=== PATIENT | male | born 1960 | race American Indian/Alaskan Native ===

== ENCOUNTER 2018-12-30 10:14 | Inpatient (IN) | payer MEDICAID ==
[2018-12-30] MEDS ORDERED: ASPIRIN PO ONE (10:39)
[2018-12-30] MEDS ORDERED: ASPIRIN ONE (10:42)
[2018-12-30] MEDS ORDERED: NORMODYNE IV ONE (11:23)
--- NOTE | 2018-12-30 11:26 | XRay Report ---
CHEST 2 VIEWS INDICATION: Chest Pain. COMPARISON: 12/08/2014 FINDINGS: Support devices: None. Heart: Within normal limits. Lungs: No acute air space or interstitial disease. Bronchovascular markings are prominent Pleura: No significant pleural effusion. No pneumothorax. Additional findings: None. IMPRESSION: 1. Diffuse prominent bronchovascular markings, pulmonary edema is a concern Signer Name: Dre Grissom MD Signed: 12/30/2018 11:21 AM Workstation Name: [id number]
--- NOTE | 2018-12-30 11:29 | Emergency Department Report ---
ED Chest Pain HPI - General Chief Complaint: Chest Pain Stated Complaint: R ARM/CHEST PAIN Time Seen by Provider: 12/30/18 11:22 Source: patient Mode of arrival: Ambulatory Limitations: No Limitations - History of Present Illness Initial Comments: Mr. Marti is a 58-year-old male with history of hypertension and diabetes mellitus who presents with chest pain for the past 3 days. Left-sided chest pain feels as if his heart is fluttering". Developed left arm pain today. Gradual onset of chest pain. Pain is persistent at rest. No change with move ment, inspiration or exertion. Pain is moderately severe. 8 out of 10 in severity. Nonspecific quality. No history of cardiac disease in the family. Positive tobacco use. He does not take any medications at this time. MD Complaint: chest pain -: Gradual, days(s) (3) Onset: during rest Pain Location: left chest Pain Radiation: LUE Severity: severe Severity scale (0 -10): 8 Quality: other (nonspecific fluttering) Consistency: constant Improves With: nothing Worsens With: nothing Treatments Prior to Arrival: none - Related Data Home Medications Medication Instructions Recorded Confirmed Last Taken Lisinopril [Zestril TAB] 2.5 mg PO QDAY 12/08/14 12/14/14 Unknown Previous Rx's Medication Instructions Recorded Last Taken Type UMER CITRATE 630mg/VIT D3 500 u 1 each PO DAILY #30 tablet 12/12/14 Unknown Rx [Calcitrate + Vit D (Nf)] Nicotine [Habitrol] 21 mg TD QDAY #30 patch 12/12/14 12/14/14 Rx Ciprofloxacin HCl [Ciprofloxacin 500 mg PO BID #10 tablet 12/17/14 Unknown Rx TAB] Insulin NPH/Regular [NovoLIN 70/30] 20 unit SUB-Q QPMDIAB 30 Days 12/17/14 Unknown Rx units Insulin NPH/Regular [NovoLIN 70/30] 30 unit SUB-Q QDDIAB 30 Days units 12/17/14 Unknown Rx Omeprazole Magnesium [PriLOSEC Otc] 20 mg PO QDAY #30 tablet. 12/17/14 Unknown Rx metroNIDAZOLE [Flagyl TAB] 500 mg PO Q8HR #15 tablet 12/17/14 Unknown Rx Allergies Allergy/AdvReac Type Severity Reaction Status Date / Time No Known Allergies Allergy Verified 12/30/18 10:52 Heart Score - HEART Score History: Moderately suspicious EKG: Non-specific Age: 45-65 Risk factors: > 3 risk factors or hx of atherosclerotic disease Troponin: < normal limit HEART Score: 5 ED Review of Systems ROS: Stated complaint: R ARM/CHEST PAIN Other details as noted in HPI Comment: All other systems reviewed and negative Constitutional: denies: fever, malaise Respiratory: orthopnea Cardiovascular: chest pain, palpitations ED Past Medical Hx - Past Medical History Previous Medical History?: Yes Hx Hypertension: Yes Hx Congestive Heart Failure: No Hx Diabetes: Yes Hx Asthma: No Hx COPD: No Hx HIV: No - Surgical History Additional Surgical History: Right elbow - Family History Family history: hypertension - Social History Smoking Status: Current Every Day Smoker Substance Use Type: Alcohol - Medications Home Medications: Home Medications Medication Instructions Recorded Confirmed Last Taken Type Lisinopril [Zestril TAB] 2.5 mg PO QDAY 12/08/14 12/14/14 Unknown History UMER CITRATE 630mg/VIT D3 500 u 1 each PO DAILY #30 tablet 12/12/14 12/14/14 Unkn own Rx [Calcitrate + Vit D (Nf)] Nicotine [Habitrol] 21 mg TD QDAY #30 patch 12/12/14 12/14/14 12/14/14 Rx Ciprofloxacin HCl [Ciprofloxacin 500 mg PO BID #10 tablet 12/17/14 Unknown Rx TAB] Insulin NPH/Regular [NovoLIN 70/30] 20 unit SUB-Q QPMDIAB 30 Days 12/17/14 Unknown Rx units Insulin NPH/Regular [NovoLIN 70/30] 30 unit SUB-Q QDDIAB 30 Days units 12/17/14 Unknown Rx Omeprazole Magnesium [PriLOSEC Otc] 20 mg PO QDAY #30 tablet. 12/17/14 Unknown Rx metroNIDAZOLE [Flagyl TAB] 500 mg PO Q8HR #15 tablet 12/17/14 Unknown Rx ED Physical Exam - General Limitations: No Limitations General appearance: alert, in no apparent distress - Head Head exam: Present: atraumatic, normocephalic - Eye Eye exam: Present: conjunctival injection. Absent: scleral icterus - ENT ENT exam: Present: mucous membranes moist - Neck Neck exam: Present: normal inspection, full ROM - Respiratory Respiratory exam: Present: normal lung sounds bilaterally. Absent: respiratory distress, wheezes, rales, rhonchi - Cardiovascular Cardiovascular Exam: Present: regular rate, normal rhythm, normal heart sounds. Absent: systolic murmur, diastolic murmur, rubs, gallop - GI/Abdominal GI/Abdominal exam: Present: soft, normal bowel sounds. Absent: distended, tenderness, guarding, rebound - Rectal Rectal exam: Present: deferred - Extremities Exam Extremities exam: Present: normal inspection - Back Exam Back exam: Present: normal inspection - Neurological Exam Neurological exam: Present: alert, oriented X3 - Psychiatric Psychiatric exam: Present: normal affect, normal mood - Skin Skin exam: Present: warm, dry, intact, normal color. Absent: rash ED Course Vital Signs 12/30/18 12/30/18 12/30/18 10:37 11:40 11:41 Temperature 98 F Pulse Rate 83 85 85 Respiratory 18 Rate Blood Pressure 187/109 192/105 192/105 Blood Pressure [Right] O2 Sat by Pulse 99 Oximetry 12/30/18 12/30/18 11:52 12:27 Temperature Pulse Rate 85 65 Respiratory 18 18 Rate Blood Pressure Blood Pressure 148/88 [Right] O2 Sat by Pulse 97 98 Oximetry ED Medical Decision Making - Lab Data Result diagrams: 12/30/18 11:14 12/30/18 11:14 - EKG Data 12/30/18 11:29 EKG obtained 1018 Normal sinus rhythm rate 90 bpm normal axis normal intervals. LVH with repolarization and a mildly poor R-wave progression in the anterior leads I have compared this EKG to EKG obtained 12/08/2014, T-wave pattern has changed in the inferolateral leads - Radiology Data Radiology results: report reviewed Pcxr; probable interstitial vascular possible pulmonary edema - Medical Decision Making Mr. Marti presents with hypertensive emergency, active chest pain with EKG changes when compared to previous EKG. Admitted to hospitalist service for ACS. Treated in ED with nitroglycerin, ASA, beta zuleima. will add BNP for possible early pulmonary edema according to chest radiograph interpretation by radiologist Critical care attestation.: If time is entered above; I have spent that time in minutes in the direct care of this critically ill patient, excluding procedure time. ED Disposition Clinical Impression: Acute coronary syndrome, Hypertensive emergency Disposition: OP ADMIT IP TO THIS HOSP Is pt being admited?: Yes Does the pt Need Aspirin: No Condition: Stable
[2018-12-30] MEDS: NITROSTAT SL PRN ×3 (11:41→17:30)
[2018-12-30 12:06] LABS: BUN/Creatinine Ratio 8; Blood Urea Nitrogen 7 mg/dL (9-20); Calcium 9.3 mg/dL (8.4-10.2); Hemolysis Index 60
[2018-12-30 12:18] LABS: Basophils # (Auto) 0.1 K/mm3 (0.0-0.1); Basophils % (Auto) 0.8 % (0.0-1.8); Eosinophils # (Auto) 0.2 K/mm3 (0.0-0.4); Eosinophils % (Auto) 2.4 % (0.0-4.3); Hematocrit 45.4 % (35.5-45.6); Hemoglobin 15.2 gm/dl (11.8-15.2); Lymphocytes # (Auto) 3.6 K/mm3 (1.2-5.4); Lymphocytes % (Auto) 38.4 % (13.4-35.0); Mean Corpuscular HGB Conc 33 % (32-34); Mean Corpuscular Volume 89 fl (84-94); Monocytes # (Auto) 0.7 K/mm3 (0.0-0.8); Monocytes % (Auto) 7.8 % (0.0-7.3); Platelet Count 169 K/mm3 (140-440); Red Blood Count 5.08 M/mm3 (3.65-5.03); Red Cell Distribution Width 13.6 % (13.2-15.2)
[2018-12-30] MEDS: DILAUDID IV PRN ×2 (17:01→20:11)
[2018-12-30] MEDS ORDERED: SODIUM CHLORIDE FLUSH SYRINGE 10 ML IV PRN ×2 (18:23→20:50)
[2018-12-30] MEDS ORDERED: ZOFRAN IV PRN ×2 (18:23→20:50)
[2018-12-30] MEDS ORDERED: [UNRECOGNIZED DRUG - OTHER] PO SCH (20:30)
[2018-12-30] MEDS ORDERED: CHOLECALCIFEROL PO SCH (20:30)
[2018-12-30] MEDS ORDERED: CALCIUM CITRATE PO SCH (20:30)
--- NOTE | 2018-12-30 20:40 | History and Physical Report ---
History of Present Illness Date of examination: 12/30/18 Date of admission: 12/30/18 14:27 Chief complaint: Chest pain for 3 days History of present illness: 58-year-old -Japanese male with history of insulin-dependent diabetes nicotine dependence and gastroesophageal of his disease comes in for left-sided chest pain for 3 days. Chest pain associated with palpitations. No diaphoresis. Also chest pain with radiation to the left arm. Exacerbated by a exertion. Chest pain is intermittent. 8 on a scale of 1-10. No recent travel. No fever or chills. Patient smokes over a pack a day. Did not see a physician in the last 2 years. Buys his INSULIN from [employer] and gives himself 30 units in the morning and 20 units in the evening. No A1c was checked in the recent 2 years. Past Medical History Previous Medical History?: Yes Hypertension: Yes Diabetes: Yes Surgical History Additional Surgical History: Right elbow Family History Family history: hypertension Social History Smoking Status: Current Every Day Smoker--- pack a day Substance Use Type: Alcohol Medications Home Medications: Home Medications Medication Instructions Recorded Confirmed Last Taken Type Lisinopril [Zestril TAB] 2.5 mg PO QDAY 12/08/14 12/14/14 Unknown History MAGDALENO CITRATE 630mg/VIT D3 500 u 1 each PO DAILY #30 tablet 12/12/14 12/14/14 Unknown Rx [Calcitrate + Vit D (Nf)] Nicotine [Habitrol] 21 mg TD QDAY #30 patch 12/12/14 12/14/14 12/14/14 Rx Ciprofloxacin HCl [Ciprofloxacin 500 mg PO BID #10 tablet 12/17/14 Unknown Rx TAB] Insulin NPH/Regular [NovoLIN 70/30] 20 unit SUB-Q QPMDIAB 30 Days 12/17/14 Unknown Rx units Insulin NPH/Regular [NovoLIN 70/30] 30 unit SUB-Q QDDIAB 30 Days units 12/17/14 Unknown Rx Omeprazole Magnesium [PriLOSEC Otc] 20 mg PO QDAY #30 tablet. 12/17/14 Unknown Rx metroNIDAZOLE [Flagyl TAB] 500 mg PO Q8HR #15 tablet 12/17/14 Unknown Rx Review of Systems ROS: Stated complaint: R ARM/CHEST PAIN Other details as noted in HPI Comment: All other systems reviewed and negative Constitutional: denies: fever, malaise Respiratory: orthopnea Cardiovascular: chest pain, palpitations Medications and Allergies Allergies Allergy/AdvReac Type Severity Reaction Status Date / Time No Known Allergies Allergy Verified 12/30/18 10:52 Home Medications Medication Instructions Recorded Confirmed Last Taken Type Lisinopril [Zestril TAB] 2.5 mg PO QDAY 12/08/14 12/14/14 Unknown History MAGDALENO CITRATE 630mg/VIT D3 500 u 1 each PO DAILY #30 tablet 12/12/14 12/14/14 Unknown Rx [Calcitrate + Vit D (Nf)] Nicotine [Habitrol] 21 mg TD QDAY #30 patch 12/12/14 12/14/14 12/14/14 Rx Ciprofloxacin HCl [Ciprofloxacin 500 mg PO BID #10 tablet 12/17/14 Unknown Rx TAB] Insulin NPH/Regular [NovoLIN 70/30] 20 unit SUB-Q QPMDIAB 30 Days 12/17/14 Unknown Rx units Insulin NPH/Regular [NovoLIN 70/30] 30 unit SUB-Q QDDIAB 30 Days units 12/17/14 Unknown Rx Omeprazole Magnesium [PriLOSEC Otc] 20 mg PO QDAY #30 tablet. 12/17/14 Unknown Rx metroNIDAZOLE [Flagyl TAB] 500 mg PO Q8HR #15 tablet 12/17/14 Unknown Rx Active Meds: Active Medications Acetaminophen (Tylenol) 650 mg PO Q4H PRN PRN Reason: Pain MILD(1-3)/Fever >100.5/VILLEGAS Hydralazine HCl (Apresoline) 10 mg IV Q4HR PRN PRN Reason: Blood Pressure Hydromorphone HCl (Dilaudid) 0.5 mg IV Q3H PRN PRN Reason: Pain , Severe (7-10) Last Admin: 12/30/18 20:11 Dose: 0.5 mg Documented by: Insulin Human Isoph/Insulin Regular (Humulin 70/30) 20 unit SUB-Q QPMDIAB MADY Insulin Human Isoph/Insulin Regular (Humulin 70/30) 30 unit SUB-Q QDDIAB MADY Miscellaneous Medication (Magdaleno Citrate 630mg/Vit D3 500 U [Calcitrate + Vit D (Nf)]) 1 each PO DAILY MADY Miscellaneous Medication (Lisinopril [Zestril Tab]) 2.5 mg PO QDAY MADY Miscellaneous Medication (Omeprazole Magnesium [Prilosec Otc]) 20 mg PO QDAY MADY Nicotine (Habitrol) 21 mg TD QDAY MADY Nitroglycerin (Nitrostat) 0.4 mg SL .Q5MIN PRN PRN Reason: Chest Pain Last Admin: 12/30/18 17:30 Dose: 0.4 mg Documented by: Ondansetron HCl (Zofran) 4 mg IV Q8H PRN PRN Reason: Nausea And Vomiting Oxycodone/Acetaminophen (Percocet 5/325) 1 tab PO Q6H PRN PRN Reason: Pain, Moderate (4-6) Sodium Chloride (Sodium Chloride Flush Syringe 10 Ml) 10 ml IV BID MADY Sodium Chloride (Sodium Chloride Flush Syringe 10 Ml) 10 ml IV PRN PRN PRN Reason: LINE FLUSH Exam - Constitutional Vitals: Temp Pulse Resp BP Pulse Ox 97.7 F 71 18 188/88 98 12/30/18 16:59 12/30/18 17:52 12/30/18 20:11 12/30/18 17:24 12/30/18 17:55 General appearance: Present: no acute distress, well-nourished - EENT Eyes: Present: PERRL ENT: hearing intact, clear oral mucosa - Neck Neck: Present: supple, normal ROM - Respiratory Respiratory effort: normal Respiratory: bilateral: CTA - Cardiovascular Heart rate: 90 Rhythm: regular Heart Sounds: Present: S1 & S2. Absent: rub, click - Extremities Extremities: no ischemia, pulses intact, pulses symmetrical, No edema Peripheral Pulses: within normal limits - Abdominal General gastrointestinal: Present: soft, non-tender, non-distended, normal bowel sounds Male genitourinary: Present: normal - Rectal Rectal Exam: deferred - Integumentary Integumentary: Present: clear, warm, dry - Musculoskeletal Musculoskeletal: gait normal, strength equal bilaterally - Psychiatric Psychiatric: appropriate mood/affect, intact judgment & insight - Neurologic Neurologic: CNII-XII intact, moves all extremities - Allied Health Allied health notes reviewed: nursing, case management Results - Labs CBC & Chem 7: 12/30/18 11:14 12/30/18 11:14 Labs: Laboratory Last Values WBC 9.3 K/mm3 (4.5-11.0) 12/30/18 11:14 RBC 5.08 M/mm3 (3.65-5.03) H 12/30/18 11:14 Hgb 15.2 gm/dl (11.8-15.2) 12/30/18 11:14 Hct 45.4 % (35.5-45.6) 12/30/18 11:14 MCV 89 fl (84-94) 12/30/18 11:14 MCH 30 pg (28-32) 12/30/18 11:14 MCHC 33 % (32-34) 12/30/18 11:14 RDW 13.6 % (13.2-15.2) 12/30/18 11:14 Plt Count 169 K/mm3 (140-440) 12/30/18 11:14 Lymph % (Auto) 38.4 % (13.4-35.0) H 12/30/18 11:14 Emmons % (Auto) 7.8 % (0.0-7.3) H 12/30/18 11:14 Eos % (Auto) 2.4 % (0.0-4.3) 12/30/18 11:14 Baso % (Auto) 0.8 % (0.0-1.8) 12/30/18 11:14 Lymph # 3.6 K/mm3 (1.2-5.4) 12/30/18 11:14 Emmons # 0.7 K/mm3 (0.0-0.8) 12/30/18 11:14 Eos # 0.2 K/mm3 (0.0-0.4) 12/30/18 11:14 Baso # 0.1 K/mm3 (0.0-0.1) 12/30/18 11:14 Seg Neutrophils % 50.6 % (40.0-70.0) 12/30/18 11:14 Seg Neutrophils # 4.7 K/mm3 (1.8-7.7) 12/30/18 11:14 Sodium 136 mmol/L (137-145) L 12/30/18 11:14 Potassium 4.3 mmol/L (3.6-5.0) 12/30/18 11:14 Chloride 100.6 mmol/L (98-107) 12/30/18 11:14 Carbon Dioxide 24 mmol/L (22-30) 12/30/18 11:14 16 mmol/L 12/30/18 11:14 BUN 7 mg/dL (9-20) L 12/30/18 11:14 0.9 mg/dL (0.8-1.5) 12/30/18 11:14 Estimated GFR > 60 ml/min 12/30/18 11:14 8 % 12/30/18 11:14 Glucose 224 mg/dL (75-100) H 12/30/18 11:14 POC Glucose 204 (70-105) H 12/30/18 17:12 Calcium 9.3 mg/dL (8.4-10.2) 12/30/18 11:14 < 0.010 ng/mL (0.00-0.029) 12/30/18 13:42 NT-Pro-B Natriuret Pep 358.4 pg/mL (0-900) 12/30/18 13:42 Short CBC 12/30/18 Range/Units 11:14 WBC 9.3 (4.5-11.0) K/mm3 Hgb 15.2 (11.8-15.2) gm/dl Hct 45.4 (35.5-45.6) % Plt Count 169 (140-440) K/mm3 [facility] 12/30/18 11:14 Sodium 136 L Potassium 4.3 Chloride 100.6 Carbon Dioxide 24 BUN 7 L Creatinine 0.9 Glucose 224 H Calcium 9.3 Cardiac Enzymes 12/30/18 12/30/18 Range/Units 11:14 13:42 Troponin T < 0.010 < 0.010 (0.00-0.029) ng/mL Short CBC 12/30/18 Range/Units 11:14 WBC 9.3 (4.5-11.0) K/mm3 Hgb 15.2 (11.8-15.2) gm/dl Hct 45.4 (35.5-45.6) % Plt Count 169 (140-440) K/mm3 [facility] 12/30/18 11:14 Sodium 136 L Potassium 4.3 Chloride 100.6 Carbon Dioxide 24 BUN 7 L Creatinine 0.9 Glucose 224 H Calcium 9.3 Cardiac Enzymes 12/30/18 12/30/18 Range/Units 11:14 13:42 Troponin T < 0.010 < 0.010 (0.00-0.029) ng/mL - Imaging and Cardiology EKG: report reviewed (heart rate of 93 per minute, left atrial enlargement and LVH.) Chest x-ray: report reviewed Imaging and Cardiology: Chest x-ray IMPRESSION: 1. Diffuse prominent bronchovascular markings, pulmonary edema is a concern Assessment and Plan Advance Directives: Yes (full code) VTE prophylaxis?: Chemical Plan of care discussed with patient/family: Yes - Patient Problems (1) Acute chest pain Current Visit: Yes Status: Acute Plan to address problem: Chest pain rule out CA protocol Serial troponins Lexiscan on Tuesday (2) Hypertension Current Visit: No Status: Chronic Qualifiers: Hypertension type: essential hypertension Qualified Code(s): I10 - Essential (primary) hypertension Plan to address problem: Continue antihypertensives (3) Insulin dependent diabetes mellitus Current Visit: Yes Status: Chronic Plan to address problem: Continue home insulin and coverage Check hemoglobin A1c (4) Nicotine dependence Current Visit: Yes Status: Chronic Qualifiers: Nicotine product type: cigarettes Plan to address problem: NicoDerm patch initiated Smoking cessation consult 10 minutes (5) DVT prophylaxis Current Visit: Yes Status: Acute Plan to address problem: Lovenox 40 mg subcutaneous daily and GI prophylaxis
[2018-12-30] MEDS ORDERED: NON-FORMULARY (Omeprazole Magnesium [Prilosec Otc] 20 MG) PO SCH (20:45)
[2018-12-30] MEDS ORDERED: REGLAN IV PRN (20:50)
[2018-12-30] MEDS ORDERED: TYLENOL PO PRN (20:50)
[2018-12-30] MEDS: PROTONIX PO SCH (21:37)
[2018-12-30] MEDS: HABITROL TD SCH (21:37)
[2018-12-30] MEDS: LOVENOX SUB-Q SCH (21:37)
[2018-12-30] MEDS: APRESOLINE IV PRN (21:38)
[2018-12-30] MEDS: SODIUM CHLORIDE FLUSH SYRINGE 10 ML IV SCH (21:49)
[2018-12-30] MEDS ORDERED: SODIUM CHLORIDE FLUSH SYRINGE 10 ML IV SCH (22:00)
[2018-12-30] MEDS: HumaLOG SUB-Q SCH (23:12)
[2018-12-31] MEDS: TYLENOL PO PRN (02:59)
[2018-12-31] MEDS: APRESOLINE IV PRN ×2 (03:47→21:43)
[2018-12-31 05:26] LABS: Basophils # (Auto) 0.1 K/mm3 (0.0-0.1); Basophils % (Auto) 1.2 % (0.0-1.8); Eosinophils # (Auto) 0.3 K/mm3 (0.0-0.4); Eosinophils % (Auto) 3.1 % (0.0-4.3); Hematocrit 44.5 % (35.5-45.6); Hemoglobin 14.9 gm/dl (11.8-15.2); Lymphocytes # (Auto) 3.5 K/mm3 (1.2-5.4); Lymphocytes % (Auto) 40.3 % (13.4-35.0); Mean Corpuscular HGB Conc 33 % (32-34); Mean Corpuscular Volume 89 fl (84-94); Monocytes # (Auto) 0.7 K/mm3 (0.0-0.8); Monocytes % (Auto) 8.6 % (0.0-7.3); Platelet Count 176 K/mm3 (140-440); Red Blood Count 4.98 M/mm3 (3.65-5.03); Red Cell Distribution Width 13.8 % (13.2-15.2)
[2018-12-31 05:55] LABS: Alanine Aminotransferase 27 units/L (7-56); Albumin 3.6 g/dL (3.9-5); BUN/Creatinine Ratio 9; Blood Urea Nitrogen 7 mg/dL (9-20); Calcium 8.8 mg/dL (8.4-10.2); Hemolysis Index 21
[2018-12-31] MEDS: HumaLOG SUB-Q SCH ×4 (08:56→21:45)
[2018-12-31] MEDS ORDERED: NON-FORMULARY (Lisinopril [Zestril Tab] 2.5 MG) PO SCH (10:00)
[2018-12-31] MEDS: CITRACAL D 315MG-250 UNITS PO SCH (10:50)
[2018-12-31] MEDS: PERCOCET 5/325 PO PRN ×3 (10:50→23:40)
[2018-12-31] MEDS: ZESTRIL PO SCH (10:51)
[2018-12-31] MEDS: HABITROL TD SCH (10:51)
[2018-12-31] MEDS: PROTONIX PO SCH (10:51)
--- NOTE | 2018-12-31 13:30 | Progress Note ---
Assessment and Plan Assessment and plan: Chest pain. Admitted to [facility] Continue Aspirin 325mg po daily Stress testing in am Hypertension Continue to monitor blood pressure Diabetes mellitus type II Fingerstick glucose qac and hs He is on Humulin 70/30 twice a day Full code status History Interval history: Chest pain Hospitalist Physical - Physical exam Narrative exam: Gen: Not in acute distress, lying in bed, HEENT: Normocephalic, atraumatic Neck: supple, no JVD Heart: S1 and S2 reg, no murmurs, rubs or gallop Lungs: Clear to auscultation, no crackles, no rhonchi Abd: soft, non tender, non distended, normal BS, Ext: No edema, no clubbing, no cyanosis Neuro: Awake,alert, Oriented X 3. No focal neurological signs Psych: normal mood - Constitutional Vitals: Temp Pulse Resp BP Pulse Ox 97.9 F 92 H 20 145/84 98 12/31/18 08:15 12/31/18 09:00 12/31/18 10:50 12/31/18 08:15 12/31/18 11:55 General appearance: Present: no acute distress, well-nourished Results - Labs CBC & Chem 7: 12/31/18 04:37 12/31/18 04:37 Labs: Laboratory Last Values WBC 8.6 K/mm3 (4.5-11.0) 12/31/18 04:37 RBC 4.98 M/mm3 (3.65-5.03) 12/31/18 04:37 Hgb 14.9 gm/dl (11.8-15.2) 12/31/18 04:37 Hct 44.5 % (35.5-45.6) 12/31/18 04:37 MCV 89 fl (84-94) 12/31/18 04:37 MCH 30 pg (28-32) 12/31/18 04:37 MCHC 33 % (32-34) 12/31/18 04:37 RDW 13.8 % (13.2-15.2) 12/31/18 04:37 Plt Count 176 K/mm3 (140-440) 12/31/18 04:37 Lymph % (Auto) 40.3 % (13.4-35.0) H 12/31/18 04:37 Woods % (Auto) 8.6 % (0.0-7.3) H 12/31/18 04:37 Eos % (Auto) 3.1 % (0.0-4.3) 12/31/18 04:37 Baso % (Auto) 1.2 % (0.0-1.8) 12/31/18 04:37 Lymph # 3.5 K/mm3 (1.2-5.4) 12/31/18 04:37 Woods # 0.7 K/mm3 (0.0-0.8) 12/31/18 04:37 Eos # 0.3 K/mm3 (0.0-0.4) 12/31/18 04:37 Baso # 0.1 K/mm3 (0.0-0.1) 12/31/18 04:37 Seg Neutrophils % 46.8 % (40.0-70.0) 12/31/18 04:37 Seg Neutrophils # 4.0 K/mm3 (1.8-7.7) 12/31/18 04:37 Sodium 139 mmol/L (137-145) 12/31/18 04:37 Potassium 3.7 mmol/L (3.6-5.0) 12/31/18 04:37 Chloride 101.6 mmol/L (98-107) 12/31/18 04:37 Carbon Dioxide 23 mmol/L (22-30) 12/31/18 04:37 18 mmol/L 12/31/18 04:37 BUN 7 mg/dL (9-20) L 12/31/18 04:37 0.8 mg/dL (0.8-1.5) 12/31/18 04:37 Estimated GFR > 60 ml/min 12/31/18 04:37 9 % 12/31/18 04:37 Glucose 176 mg/dL (75-100) H 12/31/18 04:37 POC Glucose 151 (70-105) H 12/31/18 12:10 8.2 % (4-6) H 12/30/18 20:13 Calcium 8.8 mg/dL (8.4-10.2) 12/31/18 04:37 0.30 mg/dL (0.1-1.2) 12/31/18 04:37 AST 26 units/L (5-40) 12/31/18 04:37 ALT 27 units/L (7-56) 12/31/18 04:37 127 units/L (35-129) 12/31/18 04:37 < 0.010 ng/mL (0.00-0.029) 12/31/18 00:24 NT-Pro-B Natriuret Pep 358.4 pg/mL (0-900) 12/30/18 13:42 6.8 g/dL (6.3-8.2) 12/31/18 04:37 3.6 g/dL (3.9-5) L 12/31/18 04:37 1.1 % 12/31/18 04:37 Active Medications - Current Medications Current Medications: Generic Name Dose Route Start Last Admin Trade Name Freq PRN Reason Stop Dose Admin Acetaminophen 650 mg 12/30/18 18:23 12/31/18 02:59 Tylenol PO 650 mg Q4H PRN Administration Pain MILD(1-3)/Fever >100.5/VILLEGAS Calcium Citrate 2 each 12/31/18 10:00 12/31/18 10:50 Citracal D 315mg-250 Units PO 2 each DAILY MADY Administration Enoxaparin Sodium 40 mg 12/30/18 22:00 12/30/18 21:37 Lovenox SUB-Q 40 mg QDAY@2200 MADY Administration Hydralazine HCl 10 mg 12/30/18 20:28 12/31/18 03:47 Apresoline IV 10 mg Q4HR PRN Administration Blood Pressure Hydromorphone HCl 0.5 mg 12/30/18 16:43 12/30/18 20:11 Dilaudid IV 0.5 mg Q3H PRN Administration Pain , Severe (7-10) Insulin Human Isoph/Insulin Regular 20 unit 12/31/18 17:00 Humulin 70/30 SUB-Q QPMDIAB MADY Insulin Human Isoph/Insulin Regular 30 unit 12/31/18 08:00 12/31/18 08:54 Humulin 70/30 SUB-Q 30 unit QDDIAB MADY Administration Insulin Human Lispro 0 unit 12/30/18 22:00 12/31/18 08:56 Humalog SUB-Q 2 unit ACHS MADY Administration Protocol Lisinopril 2.5 mg 12/31/18 10:00 12/31/18 10:51 Zestril PO 2.5 mg QDAY MADY Administration Metoclopramide HCl 10 mg 12/30/18 20:50 Reglan IV Q6H PRN Nausea And Vomiting Nicotine 21 mg 12/30/18 21:00 12/31/18 10:51 Habitrol TD 21 mg QDAY MADY Administration Nitroglycerin 0.4 mg 12/30/18 11:22 12/30/18 17:30 Nitrostat SL 0.4 mg .Q5MIN PRN Administration Chest Pain Ondansetron HCl 4 mg 12/30/18 18:23 Zofran IV Q8H PRN Nausea And Vomiting Ondansetron HCl 4 mg 12/30/18 20:50 Zofran IV Q8H PRN Nausea And Vomiting Oxycodone/Acetaminophen 1 tab 12/30/18 18:23 12/31/18 10:50 Percocet 5/325 PO 1 tab Q6H PRN Administration Pain, Moderate (4-6) Pantoprazole Sodium 20 mg 12/30/18 22:00 12/31/18 10:51 Protonix PO 20 mg QDAY MADY Administration Sodium Chloride 10 ml 12/30/18 22:00 12/30/18 21:49 Sodium Chloride Flush Syringe 10 Ml IV 10 ml BID MADY Administration Sodium Chloride 10 ml 12/30/18 18:23 Sodium Chloride Flush Syringe 10 Ml IV PRN PRN LINE FLUSH
[2018-12-31] MEDS: ECOTRIN PO SCH (18:13)
[2018-12-31] MEDS: LOVENOX SUB-Q SCH (21:44)
[2018-12-31] MEDS: SODIUM CHLORIDE FLUSH SYRINGE 10 ML IV SCH (21:45)
[2019-01-01] MEDS: APRESOLINE IV PRN ×2 (06:05→15:27)
[2019-01-01] MEDS ORDERED: LEXISCAN IV ONE (08:07)
[2019-01-01] MEDS: PROTONIX PO SCH (12:59)
[2019-01-01] MEDS: PERCOCET 5/325 PO PRN ×2 (13:03→21:44)
[2019-01-01] MEDS: CITRACAL D 315MG-250 UNITS PO SCH (13:04)
[2019-01-01] MEDS: HABITROL TD SCH (13:04)
[2019-01-01] MEDS: ZESTRIL PO SCH (13:05)
[2019-01-01] MEDS: ECOTRIN PO SCH (13:05)
[2019-01-01] MEDS: HumaLOG SUB-Q SCH ×3 (13:07→21:47)
[2019-01-01] MEDS: SODIUM CHLORIDE FLUSH SYRINGE 10 ML IV SCH ×2 (13:07→21:47)
[2019-01-01] MEDS ORDERED: NORVASC PO SCH (13:30)
--- NOTE | 2019-01-01 15:01 | Discharge Summary ---
Providers - Providers Date of Admission: 12/30/18 14:27 Date of discharge: 01/01/19 Attending physician: LAST PABLO Primary care physician: [facility] MD FEDE Hospitalization Condition: Fair Disposition: DC-01 TO HOME OR SELFCARE Core Measure Documentation - Palliative Care Palliative Care/ Comfort Measures: Not Applicable - Core Measures Any of the following diagnoses?: none Exam - Constitutional Vitals: Temp Pulse Resp BP Pulse Ox 98.4 F 98 H 18 157/95 99 01/01/19 11:56 01/01/19 13:04 01/01/19 11:56 01/01/19 13:04 01/01/19 11:56 Plan Activity: no restrictions Diet: low fat, low cholesterol, low salt Plan of Treatment: 1.Follow up with PCP or Rema Smith in 1 week. Assessment: 1.Chest pain, non-cardiac due to GERD 2.Hypertensive urgency Follow up with: REMA TIRADO MD [Primary Care Provider] - 3-5 Days
[2019-01-01] MEDS ORDERED: APRESOLINE IV ONE (17:35)
[2019-01-01] MEDS: TYLENOL PO PRN (17:47)
--- NOTE | 2019-01-01 18:24 | Progress Note ---
Assessment and Plan Assessment and plan: Chest pain non cardiac, due to GERD Admitted to Tele Continue Aspirin 325mg po daily Stress testing negative Hypertensive urgency BP remains elevated after adding Norvasc, Hydralazine iv Will add hydralazine po Will also add clonidine if BP remains high Diabetes mellitus type II Fingerstick glucose qac and hs He is on Humulin 70/30 twice a day Full code status Poss dc tomorrow if BP controlled. Not dc today because BP still high. History Interval history: Chest pain resolved Blood pressure elevated Hospitalist Physical - Physical exam Narrative exam: Gen: Not in acute distress, lying in bed, HEENT: Normocephalic, atraumatic Neck: supple, no JVD Heart: S1 and S2 reg, no murmurs, rubs or gallop Lungs: Clear to auscultation, no crackles, no rhonchi Abd: soft, non tender, non distended, normal BS, Ext: No edema, no clubbing, no cyanosis Neuro: Awake,alert, Oriented X 3. No focal neurological signs Psych: normal mood - Constitutional Vitals: Temp Pulse Resp BP Pulse Ox 98.4 F 91 H 20 163/91 99 01/01/19 15:22 01/01/19 18:00 01/01/19 15:22 01/01/19 18:00 01/01/19 15:22 General appearance: Present: no acute distress, well-nourished Results - Labs CBC & Chem 7: 12/31/18 04:37 12/31/18 04:37 Labs: Laboratory Last Values WBC 8.6 K/mm3 (4.5-11.0) 12/31/18 04:37 RBC 4.98 M/mm3 (3.65-5.03) 12/31/18 04:37 Hgb 14.9 gm/dl (11.8-15.2) 12/31/18 04:37 Hct 44.5 % (35.5-45.6) 12/31/18 04:37 MCV 89 fl (84-94) 12/31/18 04:37 MCH 30 pg (28-32) 12/31/18 04:37 MCHC 33 % (32-34) 12/31/18 04:37 RDW 13.8 % (13.2-15.2) 12/31/18 04:37 Plt Count 176 K/mm3 (140-440) 12/31/18 04:37 Lymph % (Auto) 40.3 % (13.4-35.0) H 12/31/18 04:37 Bay % (Auto) 8.6 % (0.0-7.3) H 12/31/18 04:37 Eos % (Auto) 3.1 % (0.0-4.3) 12/31/18 04:37 Baso % (Auto) 1.2 % (0.0-1.8) 12/31/18 04:37 Lymph # 3.5 K/mm3 (1.2-5.4) 12/31/18 04:37 Bay # 0.7 K/mm3 (0.0-0.8) 12/31/18 04:37 Eos # 0.3 K/mm3 (0.0-0.4) 12/31/18 04:37 Baso # 0.1 K/mm3 (0.0-0.1) 12/31/18 04:37 Seg Neutrophils % 46.8 % (40.0-70.0) 12/31/18 04:37 Seg Neutrophils # 4.0 K/mm3 (1.8-7.7) 12/31/18 04:37 Sodium 139 mmol/L (137-145) 12/31/18 04:37 Potassium 3.7 mmol/L (3.6-5.0) 12/31/18 04:37 Chloride 101.6 mmol/L (98-107) 12/31/18 04:37 Carbon Dioxide 23 mmol/L (22-30) 12/31/18 04:37 18 mmol/L 12/31/18 04:37 BUN 7 mg/dL (9-20) L 12/31/18 04:37 0.8 mg/dL (0.8-1.5) 12/31/18 04:37 Estimated GFR > 60 ml/min 12/31/18 04:37 9 % 12/31/18 04:37 Glucose 176 mg/dL (75-100) H 12/31/18 04:37 POC Glucose 146 (70-105) H 01/01/19 16:36 8.2 % (4-6) H 12/30/18 20:13 Calcium 8.8 mg/dL (8.4-10.2) 12/31/18 04:37 0.30 mg/dL (0.1-1.2) 12/31/18 04:37 AST 26 units/L (5-40) 12/31/18 04:37 ALT 27 units/L (7-56) 12/31/18 04:37 127 units/L (35-129) 12/31/18 04:37 < 0.010 ng/mL (0.00-0.029) 12/31/18 00:24 NT-Pro-B Natriuret Pep 358.4 pg/mL (0-900) 12/30/18 13:42 6.8 g/dL (6.3-8.2) 12/31/18 04:37 3.6 g/dL (3.9-5) L 12/31/18 04:37 1.1 % 12/31/18 04:37 Active Medications - Current Medications Current Medications: Generic Name Dose Route Start Last Admin Trade Name Freq PRN Reason Stop Dose Admin Acetaminophen 650 mg 12/30/18 18:23 01/01/19 17:47 Tylenol PO 650 mg Q4H PRN Administration Pain MILD(1-3)/Fever >100.5/VILLEGAS Amlodipine Besylate 5 mg 01/01/19 13:30 01/01/19 13:04 Norvasc PO 5 mg QDAY MADY Administration Aspirin 325 mg 12/31/18 16:00 01/01/19 13:05 Ecotrin PO 325 mg QDAY MADY Administration Calcium Citrate 2 each 12/31/18 10:00 01/01/19 13:04 Citracal D 315mg-250 Units PO 2 each DAILY MADY Administration Enoxaparin Sodium 40 mg 12/30/18 22:00 12/31/18 21:44 Lovenox SUB-Q 40 mg QDAY@2200 MADY Administration Hydralazine HCl 10 mg 12/30/18 20:28 01/01/19 15:27 Apresoline IV 10 mg Q4HR PRN Administration Blood Pressure Hydromorphone HCl 0.5 mg 12/30/18 16:43 12/30/18 20:11 Dilaudid IV 0.5 mg Q3H PRN Administration Pain , Severe (7-10) Insulin Human Isoph/Insulin Regular 20 unit 12/31/18 17:00 01/01/19 17:48 Humulin 70/30 SUB-Q 20 unit QPMDIAB MADY Administration Insulin Human Isoph/Insulin Regular 30 unit 12/31/18 08:00 01/01/19 13:06 Humulin 70/30 SUB-Q 30 unit QDDIAB MADY Administration Insulin Human Lispro 0 unit 12/30/18 22:00 01/01/19 17:59 Humalog SUB-Q Not Given [facility] Protocol Lisinopril 2.5 mg 12/31/18 10:00 01/01/19 13:05 Zestril PO 2.5 mg QDAY MADY Administration Metoclopramide HCl 10 mg 12/30/18 20:50 Reglan IV Q6H PRN Nausea And Vomiting Nicotine 21 mg 12/30/18 21:00 01/01/19 13:04 Habitrol TD 21 mg QDAY MADY Administration Nitroglycerin 0.4 mg 12/30/18 11:22 12/30/18 17:30 Nitrostat SL 0.4 mg .Q5MIN PRN Administration Chest Pain Ondansetron HCl 4 mg 12/30/18 18:23 Zofran IV Q8H PRN Nausea And Vomiting Oxycodone/Acetaminophen 1 tab 12/30/18 18:23 01/01/19 13:03 Percocet 5/325 PO 1 tab Q6H PRN Administration Pain, Moderate (4-6) Pantoprazole Sodium 20 mg 12/30/18 22:00 01/01/19 12:59 Protonix PO 20 mg QDAY MADY Administration Sodium Chloride 10 ml 12/30/18 22:00 01/01/19 13:07 Sodium Chloride Flush Syringe 10 Ml IV 10 ml BID MADY Administration Sodium Chloride 10 ml 12/30/18 18:23 01/01/19 18:01 Sodium Chloride Flush Syringe 10 Ml IV 10 ml PRN PRN Administration LINE FLUSH
[2019-01-01] MEDS: LOVENOX SUB-Q SCH (21:44)
[2019-01-01] MEDS: APRESOLINE PO SCH ×2 (21:45→21:47)
--- NOTE | 2019-01-01 23:03 | Treadmill Report ---
NUCLEAR STRESS TEST REFERRING PHYSICIAN: Dr. Haynes. PROTOCOL: The patient was brought to the stress lab in a postabsorptive state, given 10 mCi of technetium-99m at rest.. The patient underwent rest imaging. The patient underwent Lexiscan stress test. At peak stress, the patient was given 26 mCi of technetium-99m. Shortly thereafter, the patient underwent stress imaging. Raw imaging reveals mild GI artifact, no significant motion artifact. SPECT imaging examined carefully in horizontal long axis, vertical long axis, and short axis views. There is normal homogeneous uptake of radioisotope in all reported segments. No evidence of significant fixed or reversible perfusion defects suggestive of prior infarction or active ischemia. Gated wall motion reveals low normal systolic performance estimated at 50%. No TID. CONCLUSIONS: 1. Normal myocardial perfusion scan without evidence of significant ischemia or prior infarction. 2. A low normal systolic performance without evidence of stress-induced segmental wall motion abnormalities or transient ischemic dilatation. 3. Lexiscan stress test is reported separately. JOB# [id number] EUGENIO/ORTIZ
[2019-01-02] MEDS: TYLENOL PO PRN (01:37)
[2019-01-02] MEDS ORDERED: CATAPRES PO SCH (06:00)
[2019-01-02] MEDS ORDERED: APRESOLINE PO SCH (06:00)
[2019-01-02] MEDS: HumaLOG SUB-Q SCH ×2 (08:34→12:15)
[2019-01-02 09:36] VITALS: BP 138/74
[2019-01-02] MEDS: PROTONIX PO SCH (09:38)
[2019-01-02] MEDS: ECOTRIN PO SCH (09:38)
[2019-01-02] MEDS: ZESTRIL PO SCH (09:38)
[2019-01-02] MEDS: HABITROL TD SCH (09:40)
[2019-01-02] MEDS: CITRACAL D 315MG-250 UNITS PO SCH (09:55)
[2019-01-02] MEDS: SODIUM CHLORIDE FLUSH SYRINGE 10 ML IV SCH (09:56)
--- NOTE | 2019-01-02 09:56 | Discharge Summary ---
Providers - Providers Date of Admission: 12/30/18 14:27 Date of discharge: 01/02/19 Attending physician: NASIR MIMS [facility] Reason for admission: cp Condition: Fair Hospital course: 58-year-old -[place] male with history of insulin-dependent diabetes nicotine dependence and gastroesophageal of his disease comes in for left-sided chest pain for 3 days. Chest pain was associated with palpitations. No diaphoresis. Also chest pain with radiation to the left arm. Exacerbated by exertion. Chest pain was intermittent. The patient was evaluated by stress test was found be negative. Chest pains would be noncardiac secondary to GERD. Patient also noted to have accelerated hypertension and had some adjustments in his medications with stabilization of blood pressure. Disposition: - TO HOME OR SELFCARE - Discharge Diagnoses (1) GERD (gastroesophageal reflux disease) Status: Acute (2) Acute chest pain Status: Acute Core Measure Documentation - Palliative Care Palliative Care/ Comfort Measures: Not Applicable - Core Measures Any of the following diagnoses?: none Exam - Constitutional Vitals: Temp Pulse Resp BP Pulse Ox 97.7 F 69 18 138/74 97 01/02/19 09:06 01/02/19 09:38 01/02/19 09:06 01/02/19 09:38 01/02/19 09:06 General appearance: Present: no acute distress, well-nourished - EENT Eyes: Present: PERRL ENT: hearing intact, clear oral mucosa - Neck Neck: Present: supple, normal ROM - Respiratory Respiratory effort: normal Respiratory: bilateral: CTA - Cardiovascular Heart Sounds: Present: S1 & S2. Absent: rub, click - Extremities Extremities: pulses symmetrical, No edema Peripheral Pulses: within normal limits - Abdominal General gastrointestinal: Present: soft, non-tender, non-distended, normal bowel sounds Male genitourinary: Present: normal - Integumentary Integumentary: Present: clear, warm, dry - Musculoskeletal Musculoskeletal: gait normal, strength equal bilaterally - Psychiatric Psychiatric: appropriate mood/affect, intact judgment & insight - Neurologic Neurologic: CNII-XII intact, moves all extremities Plan Activity: advance as tolerated Weight Bearing Status: Full Weight Bearing Plan of Treatment: 1.Follow up with PCP or [facility] in 1 week. Assessment: 1.Chest pain, non-cardiac due to GERD 2.Hypertensive urgency Follow up with: FEDE LYNCHCLARION MD [facility] [Primary Care Provider] - 3-5 Days Prescriptions: hydrALAZINE [Apresoline TAB] 100 mg PO Q8HR #90 tab cloNIDine [Catapres] 0.1 mg PO Q12HR #60 tablet Aspirin EC [Halfprin EC] 81 mg PO QDAY #30 tablet. amLODIPine [Norvasc] 10 mg PO DAILY #30 tab amLODIPine [Norvasc] 10 mg PO QDAY #30 tablet Lisinopril [Zestril TAB] 10 mg PO QDAY #30 tablet
[2019-01-02] MEDS ORDERED: NORVASC PO SCH (10:00)
== END 2019-01-02 12:16 | disposition home or self-care (01) | DRG 392 ==
LOC: ED 10:14 → 4A 14:27
PROVIDERS: ADMIT Internal Medicine; ATTEND Hospitalist
DX: K21.9 Gastro-esophageal reflux disease without esophagitis (principal); I10 Essential (primary) hypertension; E11.8 Type 2 diabetes mellitus with unspecified complications; F17.210 Nicotine dependence, cigarettes, uncomplicated; I16.1 Hypertensive emergency; I24.9 Acute ischemic heart disease, unspecified; Z79.4 Long term (current) use of insulin; Z82.49 Family history of ischemic heart disease and other diseases of the circulatory system; Z72.89 Other problems related to lifestyle; Z79.899 Other long term (current) drug therapy; Z71.6 Tobacco abuse counseling
CPT/HCPCS: 36415; 71046; 78452; 80048; 80053; 82962; 83036; 83880; 84484; 85025; 93005; 93010; 93017; 99406; G0378; A9502; J0360; J1170; J1650; J1815; J2785

== ENCOUNTER 2021-04-26 16:21 | Emergency (ER) | payer MEDICAID ==
[~2021-04-26 16:21] MED LIST: ETOMIDATE 20 MG/10 ML INJ IV ONE; ROCURONIUM 50 MG/5 ML INJ IV ONE
--- NOTE | 2021-04-26 17:01 | Emergency Department Report ---
Blank Doc - Documentation Documentation: [facility] Consult Note # Demographics Consult Type: Acute Stroke Level 2 (4.5-24 hrs) Patient Location: Emergency Room First Name: Perry Last Name: Figueroa Date of : 1960 Age: 60 Gender: Male Facility: [facility] Time of Initial Page ( Time): 04/26/2021, 16:23 Time of Return Call ( Time): 04/26/2021, 16:23 # HPI History: 2400 was last normal, has been lethargic and having left sided weakness since waking Context/Pre-existing conditions: pre-existing motor deficit right arm # Scores Level of Consciousness 1a: [0] = Alert; keenly responsive LOC Questions 1b: [0] = Answers both questions correctly LOC Commands 1c: [0] = Performs both tasks correctly Best Gaze 2: [2] = Forced deviation Visual 3: [0] = No visual loss Facial Palsy 4: [2] = Partial paralysis Motor Arm Left 5a: [1] = Drift Motor Arm Right 5b: [1] = Drift Motor Leg Left 6a: [1] = Drift Motor Leg Right 6b: [1] = Drift Limb Ataxia 7: [0] = Absent Sensory 8: [1] = Mnga-hz-flbgxgsa sensory loss Best Language 9: [0] = No aphasia Dysarthria 10: [1] = Awlp-kq-lkexwxuh dysarthria Extinction and Inattention 11: [1] = Visual, tactile, auditory, spatial, or personal inattention NIHSS Total: 11 # Exam Motor: L>R drift in the LE. has baseline right arm issues from a prior injury # PMH-FH-SH Past Medical History: Diabetes hypertension # Data Glucose: within normal limits Head CT: no bleed preliminarily reviewed by me, please refer to radiology read for official reading subacute ischemic stroke # Assessment Impression: Ischemic Stroke (Acute) # Plan Thrombolytic/Intervention: NOT IV Thrombolysis or IA Intervention candidate Thrombolytic Exclusion: > 4.5 hours Intraarterial Exclusion: unfavorable imaging/hypodensity Blood Pressure Management: labetolol Target Blood Pressure: SBP < 220 SBP > 100 Labs: hemoglobin A1c lipid panel Imaging: (urgency: STAT): CT Angiogram Head and CT Angiogram Neck AND call back with results if abnormal Imaging: (urgency: routine): MRI Brain without contrast Diagnostic Test: echo without bubble study Therapy/Evaluation: NPO until swallow evaluation PT/OT evaluation speech/swallow consultation Medication: aspirin 81 mg daily start statin with goal of LDL < 70 DVT Prophylaxis: SCD Other: LDL < 70 If patient has any neurological deterioration please call me back immediately permissive hypertension telemetry monitoring I have discussed my recommendations with the referring provider Disposition: admit # Logistics Telemedicine: Interactive 2 way audio and visual telecommunication technology was utilized during this visit
[2021-04-26 17:08] LABS: Basophils # (Auto) 0.1 K/mm3 (0.0-0.1); Basophils % (Auto) 0.5 % (0.0-1.8); Eosinophils # (Auto) 0.1 K/mm3 (0.0-0.4); Eosinophils % (Auto) 1.3 % (0.0-4.3); Hematocrit 48.3 % (35.5-45.6); Hemoglobin 15.5 gm/dl (11.8-15.2); Lymphocytes # (Auto) 3.8 K/mm3 (1.2-5.4); Lymphocytes % (Auto) 33.8 % (13.4-35.0); Mean Corpuscular HGB Conc 32 % (32-34); Mean Corpuscular Volume 90 fl (84-94); Monocytes # (Auto) 0.9 K/mm3 (0.0-0.8); Monocytes % (Auto) 7.7 % (0.0-7.3); Platelet Count 197 K/mm3 (140-440); Red Blood Count 5.37 M/mm3 (3.65-5.03); Red Cell Distribution Width 13.4 % (13.2-15.2)
--- NOTE | 2021-04-26 17:12 | Emergency Department Report ---
HPI - General Chief Complaint: Neuro Symptoms/Deficit Time Seen by Provider: 04/26/21 16:34 - HPI HPI: 60-year-old male with history of hypertension and diabetes brought in by EMS as a stroke alert. The patient's last known well time was 12 midnight this morning. The patient was found to be aphasic and with downward right-sided gaze. He is noted to have left-sided weakness and left-sided neglect. His fingerstick blood glucose was 80. Further details of the HPI are limited due to the patient's current clinical condition. ED Past Medical Hx - Past Medical History Hx Hypertension: Yes Hx Congestive Heart Failure: No Hx Diabetes: Yes Hx Asthma: No Hx COPD: No Hx HIV: No - Surgical History Additional Surgical History: Right elbow - Social History Smoking Status: Current Some Day Smoker - Medications Home Medications: Home Medications Medication Instructions Recorded Confirmed Last Taken Type UMER CITRATE 630mg/VIT D3 500 u 1 each PO DAILY #30 tablet 12/12/14 01/01/19 12/31/18 Rx [Calcitrate + Vit D (Nf)] Nicotine [Habitrol] 21 mg TD QDAY #30 patch 12/12/14 01/01/19 12/31/18 Rx Insulin NPH/Regular [NovoLIN 70/30] 20 unit SUB-Q QPMDIAB 30 Days 12/17/14 01/01/19 12/31/18 Rx units Insulin NPH/Regular [NovoLIN 70/30] 30 unit SUB-Q QDDIAB 30 Days units 12/17/14 01/01/19 12/31/18 Rx Omeprazole Magnesium [PriLOSEC Otc] 20 mg PO QDAY #30 tablet. 12/17/14 01/01/19 Unknown Rx Aspirin EC [Halfprin EC] 81 mg PO QDAY #30 tablet. 01/01/19 Unknown Rx amLODIPine 10 mg PO DAILY #30 tab 01/01/19 Unknown Rx lisinopriL [Zestril TAB] 10 mg PO QDAY #30 tablet 01/01/19 Unknown Rx amLODIPine 10 mg PO QDAY #30 tablet 01/02/19 Unknown Rx cloNIDine [Catapres] 0.1 mg PO Q12HR #60 tablet 01/02/19 Unknown Rx hydrALAZINE [Apresoline TAB] 100 mg PO Q8HR #90 tab 01/02/19 Unknown Rx ED Review of Systems ROS: Stated complaint: ALTERED MENTAL STATUS Other details as noted in HPI Comment: Unobtainable due to pts medical conditions Physical Exam - Physical Exam Physical Exam: GENERAL: Well developed and well nourished. Awake but somnolent. HEAD: Normocephalic. No obvious signs of trauma. ENT: Moist mucous membranes. EYES: Right-sided gaze deviation. Pupils are equal round and reactive to light bilaterally NECK: Supple. Full ROM is intact. Trachea is midline. LUNGS: Nonlabored breathing. Equal chest rise bilaterally. Clear to auscultation bilaterally. CARDIOVASCULAR: Tachycardic but regular rhythm. No murmurs or rubs. VASCULAR: Cap refill < 2 seconds ABDOMEN: Abdomen is soft and nondistended. There is no significant tenderness, guarding or rebound. SKIN: Skin is warm and dry NEURO: Patient is awake and responds to commands but speaks with severe dysarthria. Left-sided facial droop. Left-sided hemineglect. Left-sided weakness. NIHSS of 16 MUSCULOSKELETAL: No obvious deformities. BACK/SPINE: No midline tenderness or step-offs of the C/T/L spine. ED Medical Decision Making - Lab Data Result diagrams: 04/26/21 17:00 04/26/21 17:00 Lab Results 04/26/21 04/26/21 04/26/21 Range/Units 17:00 17:00 17:00 WBC 11.1 H (4.5-11.0) K/mm3 RBC 5.37 H (3.65-5.03) M/mm3 Hgb 15.5 H (11.8-15.2) gm/dl Hct 48.3 H (35.5-45.6) % MCV 90 (84-94) fl MCH 29 (28-32) pg MCHC 32 (32-34) % RDW 13.4 (13.2-15.2) % Plt Count 197 (140-440) K/mm3 Lymph % (Auto) 33.8 (13.4-35.0) % Grady % (Auto) 7.7 H (0.0-7.3) % Eos % (Auto) 1.3 (0.0-4.3) % Baso % (Auto) 0.5 (0.0-1.8) % Lymph # (Auto) 3.8 (1.2-5.4) K/mm3 Grady # (Auto) 0.9 H (0.0-0.8) K/mm3 Eos # (Auto) 0.1 (0.0-0.4) K/mm3 Baso # (Auto) 0.1 (0.0-0.1) K/mm3 Seg Neutrophils % 56.7 (40.0-70.0) % Seg Neutrophils # 6.3 (1.8-7.7) K/mm3 PT 14.7 (12.2-14.9) Sec. INR 1.04 (0.87-1.13) APTT 32.8 (24.2-36.6) Sec. Thrombin Time 16.5 (15.1-19.6) Sec. Sodium 137 (137-145) mmol/L Potassium 4.7 (3.6-5.0) mmol/L Chloride 101.3 (98-107) mmol/L Carbon Dioxide 23 (22-30) mmol/L Anion Gap 17 mmol/L BUN 8 L (9-20) mg/dL Creatinine 0.8 (0.8-1.3) mg/dL Estimated GFR > 60 ml/min BUN/Creatinine Ratio 10 % Glucose 99 (75-100) mg/dL Calcium 9.3 (8.4-10.2) mg/dL Troponin T < 0.010 (0.00-0.029) ng/mL - Radiology Data Radiology results: report reviewed - Medical Decision Making 6-year-old male with history of hypertension diabetes brought in as a stroke alert after he was found with aphasia and right downward gaze today. His last known normal time was 12 midnight. He has severe left-sided neglect with left sided weakness. Fingerstick blood glucose was normal. His NIH stroke scale score is 16. He is outside the window for TPA but stroke alert was initiated with full set of labs and CT of the head. Will also obtain CTA of the head and neck to assess for large vessel occlusion. At 5:05 PM I spoke with Dr. Yan of teleneurology regarding the case. She states that on her review of the CT it shows a massive right-sided MCA stroke. She recommends that the patient be transferred to a center which has the ability to perform hemicraniotomy given that he will likely develop edema After bringing the patient back from CT, there was concern that the patient had aspirated. He was put on 100% oxygen and suction. Given that he is no longer protecting his airway I have arranged for intubation At 5:08 PM I spoke with Dr. Romero of neurosurgery regarding the case. He states that given that we do not have the ability to perform hemicraniotomy's at this facility he recommends transfer to a facility with this capability. Radiology is called to say that the CTA reveals an occluded right middle cerebr al artery. I spoke with Dr. Cespedes of neuro intervention at [facility] who states that there is no intervention to be performed given that there is already evidence of acute stroke on Noncon CT. At 5:40 PM I spoke with Dr. Walker of neuro intensive care at [facility]. He states that he wants to review the imaging before accepting the patient Patient has been intubated for airway protection. I have ordered a propofol drip. Patient's blood pressure is in the 270s systolic. I have ordered a Cardene drip for strict blood pressure control with goal systolic blood pressure of 180. Patient has been accepted by Dr. Barnett at [facility] for the neuro ICU. We will arrange transport Critical Care Time: Yes Critical care time in (mins) excluding proc time.: 60 Critical care attestation.: If time is entered above; I have spent that time in minutes in the direct care of this critically ill patient, excluding procedure time. Critical care time was spent in the evaluation/assessment, work-up, and management of acute stroke requiring stroke alert initiation, advanced imaging, close in person monitoring, IV nicardipine drip, discussion with multiple specialists, discussion with physicians for transfer, as well as multiple reevaluations and reassessments ED Disposition Clinical Impression: Occlusion of right middle cerebral artery, Stroke, Hypertensive emergency, Acute respiratory failure with hypoxia Disposition: 02 SHORT TERM HOSPITAL Is pt being admited?: No Instructions: Hypertension (ED) Referrals: PRIMARY CARE, [Primary Care Provider] - 3-5 Days - Assessment Assessment Interval: Baseline - Level of Consciousness 1a. Level of Consciousness: alert/keenly responsive - LOC Questions 1b. LOC Questions: dysarthric/intubated - LOC Command 1c. LOC Commands: performs tasks correctly - Best Gaze 2. Best Gaze: partial gaze palsy - Visual 3. Visual: no visual loss - Facial Palsy 4. Facial Palsy: unilateral complete paralysis - Motor Arm 5a. Motor Arm Left: some gravity effort 5b. Motor Arm Right: drift - Motor Leg 6a. Motor Leg Left: some gravity effort 6b. Motor Leg Right: no drift - Limb Ataxia 7. Limb Ataxia: absent - Sensory 8. Sensory: mild/moderate sensory loss - Best Language 9. Best Language: mild/moderate aphasia - Dysarthria 10. Dysarthria: severe dysarthria - Extinction and Inattention 11. Extinction/Inattention: complete neglect - Scoring Total Score: 16 Stroke Severity: Moderate to Severe Stroke
[2021-04-26 17:18] LABS: INR 1.04 (0.87-1.13)
[2021-04-26 17:19] LABS: BUN/Creatinine Ratio 10; Blood Urea Nitrogen 8 mg/dL (9-20); Calcium 9.3 mg/dL (8.4-10.2); Hemolysis Index 27; Partial Thromboplastin Time 32.8 Sec. (24.2-36.6); Thrombin Time 16.5 Sec. (15.1-19.6)
--- NOTE | 2021-04-26 17:25 | XRay Report ---
CHEST 1 VIEW INDICATION: concern for aspiration. COMPARISON: 12/30/2018 FINDINGS: Support devices: None. Heart: Normal. Lungs/Pleura: There are diffuse mild reticular opacities greatest in the bases. No pleural abnormalit y. IMPRESSION: 1. Diffuse reticular opacities greatest in the bases. In retrospect, there are similar findings on th e prior, these may be chronic. Radiographic follow-up is recommended. Signer Name: Esequiel Mojica MD Signed: 04/26/2021 5:20 PM Workstation Name: [id number]
--- NOTE | 2021-04-26 17:30 | Cat Scan Report ---
NONENHANCED CT SCAN OF THE BRAIN: INDICATION: neuro deficits <6hrs or sx present upon awakening. TECHNIQUE: Routine CT head without contrast. Sagittal and coronal reformatted images were obtained. A ll CT scans at this location are performed using CT dose reduction for ALARA by means of automated ex posure control. COMPARISON: None. FINDINGS: BRAIN / INTRACRANIAL CONTENTS: Hemorrhage: No intracranial hemorrhage; no subarachnoid hemorrhage Stroke mimics: No subdural or epidural hematoma or space taking lesion Acute/subacute territorial infarction: Denson-white matter interface: No blurring of the denson-white junction in the right temporal lobe and right insula Insular cortex: Normal on the right side Basal ganglia: Attenuation in the right white radiata; right caudate normal Wedge shaped parenchymal low density area: Present in the right frontal lobe Cortical sulci: Not effaced Lacunar infarctions: No acute lacunae Vasculopathy: Dense middle cerebral artery sign: Present bilaterally Internal carotid artery terminus: Present bilaterally Basilar artery:Normal Middle cerebral artery branches in the sylvian fissure (Dot sign): Present bilaterally Calcified embolus: Not present ASPECT score: 5 Chronic lesions:None White matter: Craniocervical junction:No significant abnormality Orbits:No significant abnormality Paranasal sinuses/mastoids:No significant abnormality Additional findings: None IMPRESSION: No hemorrhage or stroke mimics CT findings are consistent with subacute infarction in the right middle cerebral artery; since head o f the caudate is normal, this must be from distal right M1 lesion This exam was performed as part of a code stroke protocol. The exam was completed at [facility] on 04/26/2021 4:07 PM. The exam was reviewed at 4:15 PM and ER nurse was notified at 4:25 PM Signer Name: Alia Knowles MD Signed: 04/26/2021 5:26 PM Workstation Name: [email or web address]
--- NOTE | 2021-04-26 17:31 | Cat Scan Report ---
CTA NECK WITH CONTRAST HISTORY: Neuro deficits COMPARISON: None. TECHNIQUE: Routine CTA of the neck was performed. 3-D/MIP reformats were postprocessed. Percentage s tenosis is determined by direct quantitative measurements of diseased internal carotid artery diamete r compared with normal distal internal carotid artery reference segments or by criteria similar to NA SCET where applicable.All CT scans at this location are performed using CT dose reduction for ALARA b y means of automated exposure control CONTRAST: 100 ml of Omnipaque 350 FINDINGS: Aortic arch: No significant abnormality. Cervical vertebral arteries: No significant abnormality. Common carotid arteries: No significant abnormality. Carotid bifurcations: Normal Cervical internal carotid arteries: No significant abnormality. Additional findings: None. IMPRESSION: 1. No significant abnormality. Signer Name: Alia Knowles MD Signed: 04/26/2021 5:27 PM Workstation Name: [id number]
--- NOTE | 2021-04-26 17:36 | Cat Scan Report ---
CTA HEAD WITH CONTRAST HISTORY: Stroke COMPARISON: None. TECHNIQUE: Routine non-contrast CT Head, CTA of the head and post-contrast CT Head are performed. 3-D /MIP reformats postprocessed. All CT scans at this location are performed using CT dose reduction for ALARA by means of automated exposure control CONTRAST: 100 ml of Omnipaque 350 FINDINGS: CTA Head: Intracranial vertebral arteries: No significant abnormality. Basilar artery: No significant abnormality. Posterior cerebral arteries: No significant abnormality. Both posterior communicating arteries are co ntributing to posterior cerebral arteries Intracranial internal carotid arteries: Minimal atherosclerotic disease in the internal carotid arter ies; no significant stenoses from skull base to terminus Anterior cerebral arteries: No significant abnormality. Middle cerebral arteries: Right distal M1 segment is occluded; left M1 segment normal Dural venous sinuses:Not optimally opacified. No significant abnormality. Additional findings: None. 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
[2021-04-26] MEDS ORDERED: niCARdipine DRIP 40 MG/200 ML BAG ONE (18:09)
[2021-04-26] MEDS ORDERED: ETOMIDATE 20 MG/10 ML INJ IV ONE (18:25)
[2021-04-26] MEDS ORDERED: ROCURONIUM 50 MG/5 ML INJ IV ONE (18:26)
[2021-04-26] MEDS ORDERED: niCARdipine 50 MG in SODIUM CHLORIDE 0.9% 250ML 230 ML IV SCH (19:00)
[2021-04-26] MEDS ORDERED: niCARdipine DRIP 40 MG/200 ML BAG IV SCH (19:00)
--- NOTE | 2021-04-26 19:25 | XRay Report ---
CHEST 1 VIEW 6:28 PM INDICATION: post-intubation. COMPARISON: Earlier today FINDINGS: Support devices: Endotracheal tube is been placed in satisfactory position. Heart: Stable. Lungs/Pleura: Diffuse reticular opacities are again noted. There is early consolidation in the left l ower lung. This could be atelectatic given the elevation of left hemidiaphragm. No pneumothorax. IMPRESSION: 1. No complications after intubation. Signer Name: Esequiel Mojica MD Signed: 04/26/2021 7:21 PM Workstation Name: [id number]
[2021-04-26 22:30] VITALS: BP 137/81
== END 2021-04-26 22:31 | disposition short-term general hospital (02) ==
LOC: ED 16:21
DX: I63.511 Cerebral infarction due to unspecified occlusion or stenosis of right middle cerebral artery (principal); I63.9 Cerebral infarction, unspecified; I10 Essential (primary) hypertension; J96.01 Acute respiratory failure with hypoxia
CPT/HCPCS: 36415; 70450; 70496; 70498; 71045; 80048; 82805; 84484; 85025; 85610; 85670; 85730; 87070; 87205; 94002; 96365; 96366; 96368; 96375; 99291; J2704; J3490; J7050; Q9967